=== PATIENT | male | born 2000 | race Caucasian/White ===

== ENCOUNTER 2021-04-01 22:04 | Emergency (ER) | payer BC, MEDICAID ==
[~2021-04-01] VITALS: Ht 188 cm; Wt 68.0 kg
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
--- NOTE | 2021-04-01 22:45 | NUR ---
Dr. Lester at bedside, MSE in progress.
--- NOTE | 2021-04-01 23:05 | NUR ---
Xray at bedside.
[2021-04-01] MEDS ORDERED: HYDR-3980 PO (23:19)
--- NOTE | 2021-04-01 23:39 | NUR ---
Patient discharged to home in stable condition. Written and verbal after care instructions given. Patient verbalizes understanding of instructions. Stressed follow up or return to ER for worsening s/s. Denies any pain/discomfort at this time. No SOB or labored breathing. Afebrile. Steady gait. Picked up by family. Provided CD's of xrays.
[2021-04-01 23:46] VITALS: BP 128/70
== END 2021-04-01 23:40 | disposition home or self-care (01) ==
LOC: ER 22:05
DX: S16.1XXA Strain of muscle, fascia and tendon at neck level, initial encounter (principal); V49.40XA Driver injured in collision with unspecified motor vehicles in traffic accident, initial encounter; Y92.414 Local residential or business street as the place of occurrence of the external cause; M25.532 Pain in left wrist; M54.5 Low back pain; M79.675 Pain in left toe(s)
CPT/HCPCS: 72100; 73100; 73620; A4663

== ENCOUNTER 2021-10-02 21:17 | Emergency (ER) | payer BC, OTHER ==
[~2021-10-02 21:17] MED LIST: HYDR-3980 PO
--- NOTE | 2021-10-03 00:24 | NUR ---
Pt not in waiting room.
[2021-10-03] MEDS ORDERED: HYDR-3980 PO (03:42)
== END 2021-10-03 00:25 | disposition left against medical advice (07) ==
LOC: ER 21:25
DX: Z53.21 Procedure and treatment not carried out due to patient leaving prior to being seen by health care provider (principal)

== ENCOUNTER 2021-10-03 01:27 | Emergency (ER) | payer BC, OTHER ==
[~2021-10-03] VITALS: Ht 188 cm; Wt 72.6 kg
--- NOTE | 2021-10-03 03:00 | NUR ---
Dr. Castellanos at bedside for MSE.
[2021-10-03] MEDS ORDERED: HYDR-3980 PO (03:42)
--- NOTE | 2021-10-03 03:48 | NUR ---
Patient discharged to home in stable condition. Written and verbal after care instructions given. Patient verbalizes understanding of instructions. Stressed follow up or return to ER for worsening s/s. Patient out of ER with steady gait, no acute signs of distress, VSS, all belongings taken, provided with copies of covid results.
[2021-10-03 03:49] VITALS: BP 135/85
== END 2021-10-03 03:50 | disposition home or self-care (01) ==
LOC: ER 01:29
DX: J20.8 Acute bronchitis due to other specified organisms (principal); Z20.822 Contact with and (suspected) exposure to COVID-19; R03.0 Elevated blood-pressure reading, without diagnosis of hypertension
CPT/HCPCS: A4663